=== PATIENT | female | born 1970 | race Caucasian/White ===

== ENCOUNTER 2025-06-14 00:43 | Inpatient (IN) ==
--- NOTE | 2025-06-14 01:12 | Emergency Department Note ---
History of Present Illness General Chief complaint: Vomiting Stated complaint: VOMIT Time Seen by Provider: 06/14/25 00:56 History of Present Illness This 54-year-old female presents to the ER complaining of nausea vomiting diarrhea and abdominal cramping today. Patient is on Ozempic and frequently gets diarrhea but this feels different. No known bad food exposure. Patient is visiting her daughter from [place]. Patient denies chest pain, dyspnea, cough, congestion, flulike illness. Past Med/Surg History Problem List (Updated 06/14/25 @ 04:01 by Alejandra Guadalupe PA-C) Abdominal pain, acute (Acute) Nausea, vomiting, and diarrhea (Acute) Medical History (Updated 06/14/25 @ 04:01 by Alejandra Guadalupe PA-C) Morbid obesity with body mass index (BMI) of 40.0 or higher Social History Smoking Status: Never smoker Preferred Language: Faroese Feels Safe at Home: Yes Review of Systems A total of 10 systems reviewed and were otherwise negative Physical Exam Vital Signs Vital Signs - 24 hr 06/14/25 00:52 06/14/25 01:10 06/14/25 01:13 Temperature 36.0 C L Temperature Source Temporal Artery Scan Pulse Rate 102 H Pulse Rate [Apical] 83 Respiratory Rate 17 16 Respiratory Effort / Characteristics Non-Labored Spontaneous Respiratory Depth Normal Respiratory Pattern Regular Blood Pressure 125/78 Blood Pressure [Right Arm] 123/78 Blood Pressure Mean 93 Blood Pressure Mean [Right Arm] 93 Pulse Oximetry 98 98 95 Oxygen Delivery Method Room Air Room Air Room Air Sepsis Recent Fever Within 48 Hours No Sepsis New/Unexplained Change in Mental Status N/A Sepsis Action Taken by Nursing No Action Required 06/14/25 01:14 06/14/25 03:00 Temperature Temperature Source Pulse Rate 85 Pulse Rate [Apical] 91 H Respiratory Rate 18 Respiratory Effort / Characteristics Respiratory Depth Respiratory Pattern Blood Pressure Blood Pressure [Right Arm] 132/78 Blood Pressure Mean Blood Pressure Mean [Right Arm] 96 Pulse Oximetry 94 Oxygen Delivery Method Room Air Sepsis Recent Fever Within 48 Hours Sepsis New/Unexplained Change in Mental Status Sepsis Action Taken by Nursing VITALS: Vitals are noted on the nurse's note and reviewed by myself. Vital signs stable. GENERAL: Pleasant female, in no acute distress, nondiaphoretic, well-developed well-nourished. SKIN: Capillary reflex less than 2 seconds. HEENT: Normocephalic. PERRLA. EOMI. Nares patent. Mucous membranes moist. Neck is supple without nuchal rigidity. HEART: Regular rate and rhythm LUNGS: Clear to auscultation bilaterally without wheezes, rales or rhonchi. No retractions or accessory muscle use. ABDOMEN: Positive bowel sounds x 4. Normal tympanic percussion. Soft, tender to palpation mid abdomen, without masses or organomegaly. Cannon sign negative. No guarding or rebound tenderness. no CVA tenderness MUSCULOSKELETAL: No gross musculoskeletal defects. NEURO: Patient was alert and oriented to person place and time. No focal neurological deficits. Course Administered Medications Discontinued Medications Dicyclomine HCl (Dicyclomine Hcl 10 Mg/Ml 2 Ml Amp/Vial) 20 mg IM NOW ONE Stop: 06/14/25 01:07 Last Admin: 06/14/25 01:16 Dose: 20 mg Documented By: AN Sodium Chloride (Nss) 1,000 mls @ 999 mls/hr IV .Q1H1M STA Stop: 06/14/25 02:06 Last Admin: 06/14/25 01:16 Dose: 999 mls/hr Documented By: AN Famotidine (Pepcid 20mg Iv Push) 20 mg in 5 mls @ 2.5 mls/min IV NOW STA Stop: 06/14/25 01:07 Last Admin: 06/14/25 01:16 Dose: 2.5 mls/min Documented By: AN Ioversol (Optiray 320 100ml) 93 ml IV ONCE ONE Stop: 06/14/25 02:09 Last Admin: 06/14/25 02:08 Dose: 93 ml Documented By: GES Ondansetron HCl (Ondansetron Inj 2 Mg/Ml 2 Ml Vial) 4 mg IV NOW STA Stop: 06/14/25 01:07 Last Admin: 06/14/25 01:16 Dose: 4 mg Documented By: AN Medical Decision Making Medical Records Attestation: I reviewed the patient's medical records. Home Medications Current Medication List: was personally reviewed by me Laboratory Data Attestation: I reviewed the patient's lab results. 06/14/25 01:10 06/14/25 01:10 Lab Results 06/14/25 06/14/25 Range/Units 01:10 02:20 WBC 12.25 H (4.8-10.8) K/ul RBC 4.54 (4.20-5.40) M/uL Hgb 13.7 (12.0-16.0) g/dl Hct 39.4 (37.0-47.0) % MCV 86.8 (80.0-100.0) fL MCH 30.2 (25.0-34.0) pg MCHC 34.8 (32.0-36.0) g/dL RDW Std Deviation 40.4 (36.4-46.3) fL RDW Coeff of Susana 12.9 (11.5-14.5) % Plt Count 283 (130-400) K/uL MPV 9.8 (9.4-12.4) fL Immature Gran % (Auto) 0.3 % Neut % (Auto) 82.7 % Lymph % (Auto) 9.8 % [place] % (Auto) 5.9 % Eos % (Auto) 1.1 % Baso % (Auto) 0.2 % Neut # (Auto) 10.13 H (1.40-6.50) K/uL Lymph # (Auto) 1.20 (1.20-3.40) K/uL [place] # (Auto) 0.72 H (0.11-0.59) K/uL Eos # (Auto) 0.13 (0.00-0.50) K/uL Baso # (Auto) 0.03 (0.00-0.20) K/uL Immature Gran # (Auto) 0.04 (0.01-0.20) K/uL Sodium 140 (136-145) mmol/L Potassium 3.5 (3.5-5.1) mmol/L Chloride 105 (98-107) mmol/L Carbon Dioxide 25 (21-32) mmol/L Anion Gap 10 (3-11) BUN 15 (6-23) mg/dl Creatinine 1.00 (0.6-1.2) mg/dl Est Cr Clr Drug Dosing 84.7 ml/min eGFR 66.95 BUN/Creatinine Ratio 15.0 (10-20) Glucose 134 H (70-99(Fasting)) mg/dl Calcium 10.1 (8.6-10.3) mg/dl Total Bilirubin 0.8 (0.2-1.0) mg/dl AST 19 (13-39) U/L ALT 19 (7-52) U/L Alkaline Phosphatase 83 (34-104) U/L Total Protein 8.0 (6.0-8.3) gm/dl Albumin 4.4 (3.4-5.0) gm/dl Globulin 3.6 (2.5-4.0) gm/dl Albumin/Globulin Ratio 1.2 (0.9-2) Lipase 42 (11-82) U/L Urine Color Yellow Urine Appearance Clear (Clear) Urine pH 5.0 (4.5-7.5) Ur Specific [place] 1.043 H (1.000-1.030) Urine Protein Negative (Negative) Urine Glucose (UA) Negative (Negative) Urine Ketones 1+ H (Negative) Urine Blood Negative (Negative) Urine Nitrite Negative (Negative) Urine Bilirubin Negative (Negative) Urine Urobilinogen Negative (Negative) Ur Leukocyte Esterase Negative (Negative) Urine Comment Imaging Data Attestation: I personally reviewed and interpreted this imaging study as follows: Radiologist's Impression: Abdomen/Pelvis CT 06/14/25 01:06 EXAM: CT abd pelvis IV con only CLINICAL HISTORY: mid abd pain v/d TECHNIQUE: CT of the abdomen and pelvis was performed with contrast (93 cc Opti 320), using the following protocol: Axial images were obtained and reconstructed into coronal and sagittal images. One of the following dose reduction techniques was utilized for this exam: automated exposure control, adjustment of the mA and/or kV according to patient size, and use of iterative reconstruction. COMPARISON: No prior studies are available for comparison. FINDINGS: Abdomen: Liver: The liver is normal in size, shape, and density. No focal lesions, cysts, or masses are identified. The hepatic vasculature and biliary ducts are unremarkable. Gallbladder and Biliary System: The gallbladder is normal in size and shape. No wall thickening, pericholecystic fluid, or gallstones are identified. The common bile duct is normal in caliber without dilation. Pancreas: The head, body, and tail of the pancreas are visualized and appear normal in size and density. No pancreatic masses or calcifications are noted. The pancreatic duct is not dilated. Spleen: The spleen is normal in size, shape, and density. No splenic lesions or masses are identified. Appendix: No evidence of appendiceal abscess or perforation is seen. Kidneys and Adrenal Glands: Both kidneys are normal in size, shape, and position. Cortical thickness is within normal limits. No renal calculi or hydronephrosis are seen. The adrenal glands are unremarkable with no evidence of masses or hyperplasia. Pelvis: Urinary Bladder: The urinary bladder is normal in contour and wall thickness. No intraluminal lesions are identified. Uterus: Not visualized. Ovaries: Not well visualized, but no gross abnormalities are noted. Vagina: The vagina is normal in contour and wall thickness. Bowel: The cecum and ascending colon are dilated with associated mesenteric vascular swirling and anterior positioning of the cecum, with related mild proximal small bowel dilatation. Prominence of right lower quadrant mesenteric lymph nodes is present. No free ascites or pneumoperitoneum is identified. Bones and Soft Tissues: The pelvic bones and soft tissues are unremarkable. No fractures or abnormal masses are identified. IMPRESSION: CT findings raise the possibility of cecal bascule (anteromedial volvulus); further assessment and clinical correlation are advised. Electronically signed by Abdullahi Mack 06-14-2025 03:29 AM MDM Narrative Prior records/ancillary studies reviewed. Triage Nursing notes reviewed. Additional history obtained from nursing The patient's history was concerning for nausea, vomiting, diarrhea, and abdominal pain. Differential diagnosis: Etiologies such as side effect of Ozempic, gastroenteritis, food borne illness, infections, appendicitis, diverticulitis, inflammatory bowel disease, obstruction, GI bleed, biliary pathology, as well as others were entertained. Physical examination findings: As above. Abdominal examination revealed tender. Vital signs reviewed and revealed stable. ER treatment provided: IV hydration 1 L NSS. Zofran Pepcid and Bentyl were ordered On reassessment the patient felt better. Patient was tolerating p.o. intake. Diagnostics interpretation by me: The labs Independently Interpreted by myself revealed mild leukocytosis, mild hyperglycemia without DKA Negative urine Imaging studies: Imaging was reviewed and read by radiology Consultation: A consultation was placed with the hospitalist. The case was discussed and diagnostics were reviewed. The patient was evaluated in the ER for further treatment. Consultation was placed with surgery and the case was discussed. They did evaluate the patient. They think is less likely a volvulus but would like to have the patient admitted for observation. They recommend medical admission. This appears to be consistent with vomiting and diarrhea most likely viral in etiology with possible volvulus. Repeat abdominal exam is benign. Surgery and medicine were consulted. Patient will be admitted to the medical service for further evaluation and workup for possible volvulus. Surgery will reevaluate the patient later this morning. Patient is agreeable. Patient was admitted to the medical team. By the evaluation outlined above emergent etiologies such as appendicitis, diverticulitis, cardiac sources, mesenteric ischemia, aortic pathology, inflammatory bowel disease, renal colic, PUD, biliary pathology, UTI, as well as others were deemed relatively unlikely. The pt informed about the findings as listed above. All questions were answered and pleased with the treatment. The chart was completed utilizing [employer] Speech voice recognition software. Grammatical errors, random word insertions, pronoun errors, and incomplete sentences are an occassional consequence of this system due to software limitations, ambient noise, and hardware issues. Any formal questions or concerns about the content, text, or information contained within the body of this dictation should be directly addressed to the physician assistant news director for clarification. Impression & Plan Nausea, vomiting, and diarrhea, Abdominal pain, acute Discharge Plan Visit Data Chief Complaint: Vomiting Stated Complaint: VOMIT ED Provider: Baudilio Ayala ED Midlevel Provider: Alejandra Guadalupe Discharge Problem: Nausea, vomiting, and diarrhea, Abdominal pain, acute Patient Disposition: Being Evaluated by Hospitalist Condition: Good Discharge Instructions Krames/Other Patient Handouts: ED Vomiting (Adult) Activity Restrictions/Additional Instructions: Bently tablets 10mg: Take one every six hours as needed for abdominal cramping and bloating. Zofran(odansetron) tablets 4mg: Take one and allow it to dissolve in your mouth every four to six hours as needed for nausea or vomiting. Rest and drink plenty of fluids as tolerated. Slow sips of water or sports drinks are recommended instead of large amounts all at once. Continue current medications. Mystic diet until symptoms resolve. You should avoid full, heavy meals for about 24 hrs from the time your symptoms resolved. Return to the ER for persistent vomiting, fevers, abdominal pain, chest pains, difficulty breathing, black or bloody stools, worsening of your condition, or as needed. Follow up with your primary physician in 2-3 days for a recheck of your current condition. Forms Stand Alone Forms: Important Visit Information Referrals Referrals: [facility],Hospital [Primary Care Provider] -
[2025-06-14] MEDS: SODIUM CHLORIDE 0.9% 1,000 ML IV STA (01:16)
[2025-06-14] MEDS: ONDANSETRON INJ 2 MG/ML 2 ML VIAL IV STA (01:16)
[2025-06-14] MEDS: DICYCLOMINE HCL 10 MG/ML 2 ML AMP/VIAL IM ONE (01:16)
[2025-06-14] MEDS: FAMOTIDINE 20MG IV PUSH 20 MG/5 ML SYR IV STA (01:16)
[2025-06-14 01:28] LABS: Hematocrit (blood only) 39.4 % (37.0-47.0); Hemoglobin 13.7 g/dl (12.0-16.0); Immature Granulocytes # (auto) 0.04 K/uL (0.01-0.20); Immature Granulocytes % (auto) 0.3 %; Mean Corpuscular Hemoglobin 30.2 pg (25.0-34.0); Mean Corpuscular Volume 86.8 fL (80.0-100.0); Platelet Count 283 K/uL (130-400); RDW Standard Deviation 40.4 fL (36.4-46.3); Red Blood Count 4.54 M/uL (4.20-5.40); White Blood Count 12.25 K/ul (4.8-10.8)
[2025-06-14 01:47] LABS: Alanine Aminotransferase 19.0 U/L (7-52); Albumin Globulin Ratio 1.2 (0.9-2); Albumin Level 4.4 gm/dl (3.4-5.0); Alkaline Phosphatase 83.0 U/L (34-104); Anion Gap 10.0 (3-11); Bilirubin,Total 0.8 mg/dl (0.2-1.0); Blood Urea Nitrogen 15.0 mg/dl (6-23); Calcium 10.1 mg/dl (8.6-10.3); Carbon Dioxide 25.0 mmol/L (21-32); Chloride 105.0 mmol/L (98-107); Creatinine Clr Calc Pharmacy 84.7 ml/min; Globulin 3.6 gm/dl (2.5-4.0); Glucose 134.0 mg/dl (70-99(Fasting)); Lipase 42.0 U/L (11-82); Potassium 3.5 mmol/L (3.5-5.1); Sodium 140.0 mmol/L (136-145); Total Protein 8.0 gm/dl (6.0-8.3)
[2025-06-14] MEDS: OPTIRAY 320 100ml IV ONE (02:08)
[2025-06-14 02:35] LABS: Appearance Urine Clear (Clear); Glucose Urine UA Negative (Negative)
--- NOTE | 2025-06-14 03:30 | CT Scan Report ---
EXAM: CT abd pelvis IV con only CLINICAL HISTORY: mid abd pain v/d TECHNIQUE: CT of the abdomen and pelvis was performed with contrast (93 cc Opti 320), using the following protocol: Axial images were obtained and reconstructed into coronal and sagittal images. One of the following dose reduction techniques was utilized for this exam: automated exposure control, adjustment of the mA and/or kV according to patient size, and use of iterative reconstruction. COMPARISON: No prior studies are available for comparison. FINDINGS: Abdomen: Liver: The liver is normal in size, shape, and density. No focal lesions, cysts, or masses are identified. The hepatic vasculature and biliary ducts are unremarkable. Gallbladder and Biliary System: The gallbladder is normal in size and shape. No wall thickening, pericholecystic fluid, or gallstones are identified. The common bile duct is normal in caliber without dilation. Pancreas: The head, body, and tail of the pancreas are visualized and appear normal in size and density. No pancreatic masses or calcifications are noted. The pancreatic duct is not dilated. Spleen: The spleen is normal in size, shape, and density. No splenic lesions or masses are identified. Appendix: No evidence of appendiceal abscess or perforation is seen. Kidneys and Adrenal Glands: Both kidneys are normal in size, shape, and position. Cortical thickness is within normal limits. No renal calculi or hydronephrosis are seen. The adrenal glands are unremarkable with no evidence of masses or hyperplasia. Pelvis: Urinary Bladder: The urinary bladder is normal in contour and wall thickness. No intraluminal lesions are identified. Uterus: Not visualized. Ovaries: Not well visualized, but no gross abnormalities are noted. Vagina: The vagina is normal in contour and wall thickness. Bowel: The cecum and ascending colon are dilated with associated mesenteric vascular swirling and anterior positioning of the cecum, with related mild proximal small bowel dilatation. Prominence of right lower quadrant mesenteric lymph nodes is present. No free ascites or pneumoperitoneum is identified. Bones and Soft Tissues: The pelvic bones and soft tissues are unremarkable. No fractures or abnormal masses are identified. IMPRESSION: CT findings raise the possibility of cecal bascule (anteromedial volvulus); further assessment and clinical correlation are advised. Electronically signed by Abdullahi Mack 06-14-2025 03:29 AM
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
--- NOTE | 2025-06-14 06:09 | History & Physical Report ---
Date of Service June 14, 2025 Assessment & Plan (1) Nausea, vomiting, and diarrhea: Plan: 54-year-old female with past medical history significant for depression, anxiety, sleep apnea who is from [facility] visiting [place] to take care of her daughters and her kids presents with nausea vomiting and diarrhea. Patient had several episodes of nausea /vomiting and diarrhea at home. She is on Ozempic and she gets diarrhea but this seemed different and came to the hospital as she is worried about dehydration. CAT scan showing questionable cecal volvulus. Currently patient is asymptomatic except for some abdominal discomfort. Evaluated by surgery and recommended observation for now. Denies any chest pain or shortness of breath. No headache. No cough. No fevers. But when she was vomiting was feeling hot and cold. Patient states one bowel movement was presley colored. Micturating okay. Currently resting comfortably. 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 Depression and anxiety Continue home medications Sleep apnea Uses dental appliance Obesity and prediabetes on Ozempic will follow hba1c levels DVT prophylaxis SCDs for now Disposition Medical floor Full code. History of Present Illness Chief Complaint: Nausea vomiting and diarrhea Primary Care Provider: [facility] 54-year-old female with past medical history significant for depression, anxiety, sleep apnea who is from [facility] visiting [place] to take care of her daughters and her kids presents with nausea vomiting and diarrhea. Patient had several episodes of nausea /vomiting and diarrhea at home. She is on Ozempic and she gets diarrhea but this seemed different and came to the hospital as she is worried about dehydration. CAT scan showing questionable cecal volvulus. Currently patient is asymptomatic except for some abdominal discomfort. Evaluated by surgery and recommended observation for now. Denies any chest pain or shortness of breath. No headache. No cough. No fevers. But when she was vomiting was feeling hot and cold. Patient states one bowel movement was presley colored. Micturating okay. Currently resting comfortably. Past medical history. As mentioned above. Past surgical history. Hysterectomy Social history. No smoking. No alcohol spine no drug use. Family history. Father has Alzheimer's disease. Cancer in the family Home Medications Medication Instructions Recorded Confirmed Type azelastine 137 mcg (0.1 %) nasal 1 spray intranasal BID PRN 06/14/25 06/14/25 History spray Allergic Symptoms bupropion HCl 150 mg tablet,12 hr 150 mg PO DAILY 06/14/25 06/14/25 History sustained-release duloxetine 60 mg capsule,delayed 60 mg PO DAILY 06/14/25 06/14/25 History release fluticasone propionate 50 1 spray intranasal DAILY 06/14/25 06/14/25 History mcg/actuation nasal spray,suspension lidocaine 5 % topical patch 1 patch topical DAILY 06/14/25 06/14/25 History loratadine 10 mg tablet 10 mg PO DAILY 06/14/25 06/14/25 History lorazepam 0.5 mg tablet (Ativan) 0.5 mg PO BID PRN Anxiety 06/14/25 06/14/25 History semaglutide 0.25 mg or 0.5 mg (2 0.25 mg subcut WK 06/14/25 06/14/25 History mg/3 mL) subcutaneous pen injector (Ozempic) Past Med/Surg History Problem List (Updated 06/14/25 @ 04:01 by Alejandra Guadalupe PA-C) Abdominal pain, acute (Acute) Nausea, vomiting, and diarrhea (Acute) Medical History (Updated 06/14/25 @ 04:01 by Alejandra Guadalupe PA-C) Morbid obesity with body mass index (BMI) of 40.0 or higher Social History Smoking Status: Never smoker Preferred Language: Albanian Feels Safe at Home: Yes Review of Systems Review of Systems: All systems reviewed & are unremarkable except as noted in HPI & below Physical Exam Physical Exam: General- Not in distress Head- atraumatic Eyes- PERRL. ENT- oropharynx clear Neck- supple, no JVD Lungs- clear to auscultation no wheezing or crackles Heart- regular rhythm; no murmur, no gallop. Abdomen- normal bowel sounds, soft, mild discomfort in periumbilical region , no distension Extremities- no pretibial edema, no erythema seen Neuro- alert, oriented PERRL, no facial palsy; no dysarthria; moves extremities Results & Data Results & Data Vital Signs (Past 12 Hours) Vital Signs Temp Pulse Pulse Resp BP BP Pulse Ox 06/14/25 05:04 77 06/14/25 05:00 73 18 115/77 94 06/14/25 03:00 91 H 18 132/78 94 06/14/25 01:14 85 06/14/25 01:13 83 16 123/78 95 06/14/25 01:10 98 06/14/25 00:52 36.0 C L 102 H 17 125/78 98 O2 Del Method 06/14/25 05:04 06/14/25 05:00 Room Air 06/14/25 03:00 Room Air 06/14/25 01:14 06/14/25 01:13 Room Air 06/14/25 01:10 Room Air 06/14/25 00:52 Room Air Diagnostic Findings Laboratory Results WBC 12.25 K/ul (4.8-10.8) H 06/14/25 01:10 RBC 4.54 M/uL (4.20-5.40) 06/14/25 01:10 Hgb 13.7 g/dl (12.0-16.0) 06/14/25 01:10 Hct 39.4 % (37.0-47.0) 06/14/25 01:10 MCV 86.8 fL (80.0-100.0) 06/14/25 01:10 MCH 30.2 pg (25.0-34.0) 06/14/25 01:10 MCHC 34.8 g/dL (32.0-36.0) 06/14/25 01:10 RDW Std Deviation 40.4 fL (36.4-46.3) 06/14/25 01:10 RDW Coeff of Susana 12.9 % (11.5-14.5) 06/14/25 01:10 Plt Count 283 K/uL (130-400) 06/14/25 01:10 MPV 9.8 fL (9.4-12.4) 06/14/25 01:10 Immature Gran % (Auto) 0.3 % 06/14/25 01:10 Neut % (Auto) 82.7 % 06/14/25 01:10 Lymph % (Auto) 9.8 % 06/14/25 01:10 Cobb % (Auto) 5.9 % 06/14/25 01:10 Eos % (Auto) 1.1 % 06/14/25 01:10 Baso % (Auto) 0.2 % 06/14/25 01:10 Neut # (Auto) 10.13 K/uL (1.40-6.50) H 06/14/25 01:10 Lymph # (Auto) 1.20 K/uL (1.20-3.40) 06/14/25 01:10 Cobb # (Auto) 0.72 K/uL (0.11-0.59) H 06/14/25 01:10 Eos # (Auto) 0.13 K/uL (0.00-0.50) 06/14/25 01:10 Baso # (Auto) 0.03 K/uL (0.00-0.20) 06/14/25 01:10 Immature Gran # (Auto) 0.04 K/uL (0.01-0.20) 06/14/25 01:10 Sodium 140 mmol/L (136-145) 06/14/25 01:10 Potassium 3.5 mmol/L (3.5-5.1) 06/14/25 01:10 Chloride 105 mmol/L (98-107) 06/14/25 01:10 Carbon Dioxide 25 mmol/L (21-32) 06/14/25 01:10 Anion Gap 10 (3-11) 06/14/25 01:10 BUN 15 mg/dl (6-23) 06/14/25 01:10 Creatinine 1.00 mg/dl (0.6-1.2) 06/14/25 01:10 Est Cr Clr Drug Dosing 84.7 ml/min 06/14/25 01:10 eGFR 66.95 06/14/25 01:10 BUN/Creatinine Ratio 15.0 (10-20) 06/14/25 01:10 Glucose 134 mg/dl (70-99(Fasting)) H 06/14/25 01:10 Calcium 10.1 mg/dl (8.6-10.3) 06/14/25 01:10 Total Bilirubin 0.8 mg/dl (0.2-1.0) 06/14/25 01:10 AST 19 U/L (13-39) 06/14/25 01:10 ALT 19 U/L (7-52) 06/14/25 01:10 Alkaline Phosphatase 83 U/L (34-104) 06/14/25 01:10 Total Protein 8.0 gm/dl (6.0-8.3) 06/14/25 01:10 Albumin 4.4 gm/dl (3.4-5.0) 06/14/25 01:10 Globulin 3.6 gm/dl (2.5-4.0) 06/14/25 01:10 Albumin/Globulin Ratio 1.2 (0.9-2) 06/14/25 01:10 Lipase 42 U/L (11-82) 06/14/25 01:10 Urine Color Yellow 06/14/25 02:20 Urine Appearance Clear (Clear) 06/14/25 02:20 Urine pH 5.0 (4.5-7.5) 06/14/25 02:20 Ur Specific [place] 1.043 (1.000-1.030) H 06/14/25 02:20 Urine Protein Negative (Negative) 06/14/25 02:20 Urine Glucose (UA) Negative (Negative) 06/14/25 02:20 Urine Ketones 1+ (Negative) H 06/14/25 02:20 Urine Blood Negative (Negative) 06/14/25 02:20 Urine Nitrite Negative (Negative) 06/14/25 02:20 Urine Bilirubin Negative (Negative) 06/14/25 02:20 Urine Urobilinogen Negative (Negative) 06/14/25 02:20 Ur Leukocyte Esterase Negative (Negative) 06/14/25 02:20 Urine Comment 06/14/25 02:20 Impressions Abdomen/Pelvis CT 06/14/25 01:06 EXAM: CT abd pelvis IV con only CLINICAL HISTORY: mid abd pain v/d TECHNIQUE: CT of the abdomen and pelvis was performed with contrast (93 cc Opti 320), using the following protocol: Axial images were obtained and reconstructed into coronal and sagittal images. One of the following dose reduction techniques was utilized for this exam: automated exposure control, adjustment of the mA and/or kV according to patient size, and use of iterative reconstruction. COMPARISON: No prior studies are available for comparison. FINDINGS: Abdomen: Liver: The liver is normal in size, shape, and density. No focal lesions, cysts, or masses are identified. The hepatic vasculature and biliary ducts are unremarkable. Gallbladder and Biliary System: The gallbladder is normal in size and shape. No wall thickening, pericholecystic fluid, or gallstones are identified. The common bile duct is normal in caliber without dilation. Pancreas: The head, body, and tail of the pancreas are visualized and appear normal in size and density. No pancreatic masses or calcifications are noted. The pancreatic duct is not dilated. Spleen: The spleen is normal in size, shape, and density. No splenic lesions or masses are identified. Appendix: No evidence of appendiceal abscess or perforation is seen. Kidneys and Adrenal Glands: Both kidneys are normal in size, shape, and position. Cortical thickness is within normal limits. No renal calculi or hydronephrosis are seen. The adrenal glands are unremarkable with no evidence of masses or hyperplasia. Pelvis: Urinary Bladder: The urinary bladder is normal in contour and wall thickness. No intraluminal lesions are identified. Uterus: Not visualized. Ovaries: Not well visualized, but no gross abnormalities are noted. Vagina: The vagina is normal in contour and wall thickness. Bowel: The cecum and ascending colon are dilated with associated mesenteric vascular swirling and anterior positioning of the cecum, with related mild proximal small bowel dilatation. Prominence of right lower quadrant mesenteric lymph nodes is present. No free ascites or pneumoperitoneum is identified. Bones and Soft Tissues: The pelvic bones and soft tissues are unremarkable. No fractures or abnormal masses are identified. IMPRESSION: CT findings raise the possibility of cecal bascule (anteromedial volvulus); further assessment and clinical correlation are advised. Electronically signed by Abdullahi Mack 06-14-2025 03:29 AM Code Status & VTE Plan VTE Prophylaxis Plan VTE Prophylaxis will be ordered: Yes
[2025-06-14] MEDS: ACETAMINOPHEN 1,000 MG/100 ML VIAL IV STA (08:57)
[2025-06-14] MEDS ORDERED: ONDANSETRON INJ 2 MG/ML 2 ML VIAL ONE (09:25)
[2025-06-14] MEDS ORDERED: LIDOCAINE 2% 2 ML VIAL/AMP(20MG/ML) INFIL ONE ×2 (09:25→09:26)
[2025-06-14] MEDS ORDERED: MIDAZOLAM HCL 1 MG/ML 2ML VIAL ONE (09:25)
[2025-06-14] MEDS ORDERED: DEXAMETHASONE SOD INJ 4 MG/ML VIAL ONE (09:25)
[2025-06-14] MEDS ORDERED: PROPOFOL IV EMULSION 10 MG/ML 20 ML VIAL IV ONE ×2 (09:25→12:44)
[2025-06-14] MEDS ORDERED: ROCURONIUM BROMIDE 10 MG/ML 5 ML VIAL IV ONE ×2 (09:26→11:20)
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
[2025-06-14] MEDS ORDERED: ATROPINE SULFATE 0.1 MG/ML 10ML SYR IV PRN (09:37)
[2025-06-14] MEDS ORDERED: PROMETHAZINE HCL 6.25 MG in SODIUM CHLORIDE 0.9% 50 ML IV PRN (09:37)
[2025-06-14] MEDS ORDERED: DROPERIDOL 5 MG/2 ML VIAL IV PRN (09:37)
[2025-06-14] MEDS: LACTATED RINGER'S 1,000 ML IV SCH ×2 (09:38→15:09)
--- NOTE | 2025-06-14 10:03 | History & Physical Bridge Note ---
Date of Service June 14, 2025 History & Physical Bridge Note I have examined the patient, reviewed the History & Physical and in the interval since the performance of the History & Physical I have noted the following changes of clinical significance: no changes noted. Patient with symptomatic cecal bascule. Plan will be for laparoscopic right colectomy, possible open colectomy, possible ostomy, risks of procedure were discussed with the patient and they include bleeding, infection, injury to surrounding structures, need for further procedures, anastomotic leak, wound issues to include wound infection, dehiscence, and hernia, and cardiopulmonary events that can occur. Alternatives include no surgery, which the patient declines. Patient wishes to proceed with surgery. All questions were answered.
[2025-06-14] MEDS: NALOXEGOL OXALATE 25 MG TAB PO SCH (10:45)
[2025-06-14] MEDS ORDERED: PHENYLEPHRINE 100MCG/ML 5ML SYR ONE (11:22)
[2025-06-14] MEDS ORDERED: SUGAMMADEX SODIUM 200 MG/2 ML VIAL IV ONE (11:41)
[2025-06-14] MEDS: BUPIVACAINE 0.5 % 5 MG/1 ML MPF 30ML VIAL ONE (12:26)
[2025-06-14] MEDS: BUPIVACAINE LIPOSOME 1.3% 133 MG/10 ML VIAL ONE (12:26)
--- NOTE | 2025-06-14 12:38 | Operative Report ---
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, multiple small bowel nodules seen throughout the small bowel intraluminally, unclear etiology I identified the patient and participated in the time-out.: Yes Procedure Operation Date: 06/14/25 12:10 Actual Procedures p Laparoscopic Right Hemicolectomy(Not Applicable) - Anthony Medina MD Surgeon Anthony Medina MD Ticket Attendant Amairani Orta PA-C Estimated Blood Loss 15 Findings Consistent with Post-Op Diagnosis 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 Workup revealed cecal bascule with twisting of mesentery with anterior medial volvulus. She presents now for laparoscopic right colectomy with primary anastomosis. Risks of procedure were discussed with the patient include bleeding, infection, injury to surround structures, need for further procedures, anastomotic leak, wound issues to include wound infection, dehiscence, and hernia, and cardiopulmonary events that can occur. Alternatives include no surgery, show patient declines. Patient wishes to proceed with surgery. All questions were answered. Description of procedure: Informed consent was verified and site of surgery was verified and the patient was brought back to operating room. General anesthesia was administered. She was in the supine position with the arms tucked. The patient's abdomen was prepped and draped in the usual sterile fashion. A surgical timeout was performed and there were no issues. Next, a left upper quadrant incision was made and a Veress needle was inserted and the abdomen was insufflated to about 15 mmHg. Next, a 30 degree laparoscope was inserted with a 5 mm trocar under direct vision using the Optiview technique. The abdomen was inspected, there was no evidence of any injuries to any structures from entry into the abdominal cavity. 2 additional 5 mm ports were placed under direct vision, 1 was in the left lower quadrant and 1 was suprapubically. At the level of the cecum, there was indeed twisting with some twisting of the small bowel mesentery proximal to this. The small bowel at this level did appear to be hyperemic. The right colon was mobilized along the white line of Toldt and was mobilized distal to the hepatic flexure with care taken to avoid injury to any structures. A midline HandPort was used to bring the bowel out into the abdomen. Next, the lines of transection was identified approximately 10 cm proximal to the ileocecal valve and just distal to the hepatic flexure and the colon and small bowel were transected using the 80 mm SHIRA stapler. Next, the mesentery was divided using a commendation of the LigaSure device as well as suture ligation of the mesentery. Because this was not for cancer, high ligation of the mesentery was not performed. Next, a [id number] functional end-to-end anastomosis was created by opening the antimesenteric ends of the small bowel and the transverse colon and using the 80 mm SHIRA stapler to create the anastomosis. After creating the anastomosis, the small bowel was examined before closing the common enterotomy and was seen to have multiple nodules and it, either pseudopolyps versus inflammatory polyps versus nodules. The small bowel was palpated proximal to the staple line and the nodules were identified and seen quite proximal to it as well. Given that these did appear to be chronic and diffuse, decision was made not to resect further proximally. The common enterotomy was closed using the contour stapling device. 3-0 Vicryl suture was used to reinforce the staple line as well as to take tension off the staple line. Because the mesenteric defect was large, it was not closed. The colon and anastomosis was examined laparoscopically and was seen to be without twisting of the mesentery. A 19 Upper Sor[place] Emir drain was placed via the suprapubic port and was brought below the hepatic flexure and secured. The fascia of the HandPort was closed with 0 looped PDS and Exparel was injected along the fascia and the port site incisions. The skin of the HandPort and the other ports were closed using isaiah. Sterile dressing was applied the patient was weaned off anesthesia and transferred to recovery in stable condition. She tolerated the procedure well. I attest to the content of the Intraoperative Record and any orders documented therein. Any exceptions are noted below.
[2025-06-14] MEDS: HYDROmorphone INJ 2 MG/ML SYR/VIAL IV PRN (12:48)
[2025-06-14] MEDS: KETOROLAC 30 MG/ML VIAL ONE (13:28)
[2025-06-14] MEDS: KETOROLAC TROMETHAMINE 15 MG/ML VIAL IV ONE (13:28)
[2025-06-14] MEDS ORDERED: AZELASTINE HCL 0.1% NASAL 200 SPRAYS/27,400 MCG BTL PRN (14:33)
[2025-06-14] MEDS ORDERED: ONDANSETRON INJ 2 MG/ML 2 ML VIAL IV PRN (14:33)
[2025-06-14] MEDS ORDERED: LORazepam 0.5 MG TAB PO PRN (14:33)
[2025-06-14] MEDS ORDERED: MoRPHine SULFATE 4 MG/ML 1 ML CARP\\VIAL IV PRN (14:38)
--- NOTE | 2025-06-14 14:55 | Anesthesiology Progress Note ---
Date of Service June 14, 2025 Anesthesia Post Procedure Vital Signs Vital Signs: Temp Pulse Pulse Pulse Resp BP BP 06/14/25 14:42 36.3 C L 78 16 117/79 06/14/25 14:30 36.3 C L 78 16 117/79 06/14/25 14:15 68 12 116/68 06/14/25 14:05 70 10 L 127/69 06/14/25 13:55 72 12 119/75 06/14/25 13:45 79 14 119/78 06/14/25 13:35 36.3 C L 87 12 107/55 L 06/14/25 13:25 91 H 12 82/51 L 06/14/25 13:15 84 10 L 93/54 L 06/14/25 13:05 85 15 101/48 L 06/14/25 12:55 83 15 125/63 06/14/25 12:48 36.1 C L 81 10 L 132/62 06/14/25 09:58 85 17 121/71 06/14/25 09:31 36.6 C 88 18 121/71 06/14/25 09:04 85 17 121/71 06/14/25 06:30 79 16 110/62 06/14/25 05:04 77 06/14/25 05:00 73 18 115/77 06/14/25 03:00 91 H 18 132/78 06/14/25 01:14 85 06/14/25 01:13 83 16 123/78 06/14/25 01:10 06/14/25 00:52 36.0 C L 102 H 17 125/78 Pulse Ox O2 Del Method O2 Flow Rate 06/14/25 14:42 97 Room Air 06/14/25 14:30 97 Room Air 06/14/25 14:15 92 Room Air 06/14/25 14:05 94 Room Air 06/14/25 13:55 97 Room Air 06/14/25 13:45 97 Room Air 06/14/25 13:35 96 Room Air 06/14/25 13:25 98 Oxymask 2 06/14/25 13:15 98 Oxymask 5 06/14/25 13:05 98 Oxymask 10 06/14/25 12:55 92 Oxymask 10 06/14/25 12:48 95 Oxymask 10 06/14/25 09:58 97 Room Air 06/14/25 09:31 98 Room Air 06/14/25 09:04 97 Room Air 06/14/25 06:30 92 Room Air 06/14/25 05:04 06/14/25 05:00 94 Room Air 06/14/25 03:00 94 Room Air 06/14/25 01:14 06/14/25 01:13 95 Room Air 06/14/25 01:10 98 Room Air 06/14/25 00:52 98 Room Air Pain Intensity Abdomen: Pain Intensity: 4 Transfer of Care Handoff Completed per policy Notes Mental Status: alert / awake / arousable and participated in evaluation Nausea / Vomiting: adequately controlled Pain: adequately controlled Airway Patency, RR, SpO2: stable & adequate BP & HR: stable & adequate Hydration State: stable & adequate Anesthetic Complications: no major complications apparent and Pt Satisfied with anesthetic care
[2025-06-14] MEDS: MoRPHine SULFATE 4 MG/ML 1 ML CARP\\VIAL IV PRN (15:06)
[2025-06-14] MEDS: PIPERACILLIN/TAZOBACTAM 4.5 GM/100 ML BAG IV ONE (15:12)
[2025-06-14] MEDS: LORATADINE 10 MG TAB PO SCH (15:39)
[2025-06-14] MEDS: FLUTICASONE PROPIONATE NA SPR 16 GM BTL SCH (15:39)
[2025-06-14] MEDS: LIDOCAINE 5% 1 PATCH TD SCH (15:40)
--- NOTE | 2025-06-14 16:53 | Communication Note ---
Date of Service: June 14, 2025 Examined at bedside postoperatively reports pain is well controlled at this time with no acute concerns daughter at bedside #Cecal volvulus s/p hemicolectomy Noted in op report to have multiple small bowel nodules seen throughout the small bowel intraluminally, unclear etiology Pathology pending continue npo status continue IVF labs in am to assess for post op anemia
[2025-06-14] MEDS: ACETAMINOPHEN 1,000 MG/100 ML VIAL IV SCH (17:11)
[2025-06-14] MEDS: REMOVE LIDODERM PATCH SCH (20:52)
[2025-06-15 07:57] LABS: Hematocrit (blood only) 35.9 % (37.0-47.0); Hemoglobin 11.9 g/dl (12.0-16.0); Immature Granulocytes # (auto) 0.03 K/uL (0.01-0.20); Immature Granulocytes % (auto) 0.3 %; Mean Corpuscular Hemoglobin 28.9 pg (25.0-34.0); Mean Corpuscular Volume 87.1 fL (80.0-100.0); Platelet Count 228 K/uL (130-400); RDW Standard Deviation 41.1 fL (36.4-46.3); Red Blood Count 4.12 M/uL (4.20-5.40); White Blood Count 10.85 K/ul (4.8-10.8)
[2025-06-15 08:17] LABS: Anion Gap 7.0 (3-11); Blood Urea Nitrogen 10.0 mg/dl (6-23); Calcium 9.2 mg/dl (8.6-10.3); Carbon Dioxide 25.0 mmol/L (21-32); Chloride 106.0 mmol/L (98-107); Creatinine Clr Calc Pharmacy 116.0 ml/min; Glucose 116.0 mg/dl (70-99(Fasting)); Magnesium 2.0 mg/dl (1.7-2.4); Potassium 3.6 mmol/L (3.5-5.1); Sodium 138.0 mmol/L (136-145)
[2025-06-15 08:55] LABS: Hemoglobin A1C 5.3 % (4.5-5.6)
[2025-06-15] MEDS: ASCORBIC ACID 500 MG TAB PO SCH (09:15)
[2025-06-15] MEDS: DOCUSATE SODIUM 100 MG CAP PO SCH (09:19)
--- NOTE | 2025-06-15 10:47 | Surgery Progress Note ---
Date of Service June 15, 2025 Assessment & Plan (1) Cecal bascule: Plan: Postop day 1 from laparoscopic right colectomy with primary anastomosis. Doing well without any acute issues. Plan will be for full liquid diet, await return of bowel function, continue ambulation, DC Novak, Hep-Lock IV fluids. Continue antibiotics. Admission and Anticipated Discharge Date Admission Date: June 14, 2025 Subjective Patient is postop day 1 from laparoscopic right colectomy with primary anastomosis for cecal bascule with mesenteric volvulus. She is doing well without any acute issues. She has been ambulating. She denies passing flatus. She is tolerating sips. Physical Exam Constitutional: WD/WN, vitals as above Respiratory: Normal effort Gastrointestinal (Abdomen): Soft, nondistended, EDWARD drain with serosanguineous fluid Results & Data Vital Signs (Past 12 Hours) Vital Signs Temp Pulse Resp BP Pulse Ox O2 Del Method 06/15/25 08:22 36.7 C 94 H 14 118/75 98 Room Air 06/15/25 03:35 36.4 C L 89 16 103/69 94 Room Air 06/14/25 23:34 36.3 C L 97 H 18 115/70 93 Room Air PG Care Time/CCT Total # of Minutes Spent Total Time Spent with Patient: Total time spent is greater than 50% in coordination of care (as documented) at patient's floor/unit and/or counseling patient: Coding Level of Care Code 44763 Post Operative Follow-Up Diagnoses Cecal bascule K56.2
--- NOTE | 2025-06-15 14:01 | Hospitalist Progress Note ---
Date of Service June 15, 2025 Assessment & Plan (1) Nausea, vomiting, and diarrhea: Plan: Ms Ratliff is a 54-year-old female with past medical history significant for depression, anxiety, sleep apnea who is from [facility] visiting [place] to take care of her daughters and her kids admitted for cecal volvulus and now s/p right hemicolectomy. Patient doing well post operatively thus far. No flatus to date. #Cecal volvulus s/p hemicolectomy Noted in op report to have multiple small bowel nodules seen throughout the small bowel intraluminally, unclear etiology Reviewed surgery notes, transiton to [facility] continue IVF continue abx #post operative blood loss anemia labs in am to assess for post op anemia will transfuse <7 #Depression and anxiety Continue home medications #Sleep apnea Uses dental appliance #Obesity and prediabetes on Ozempic a1c 5.3% DVT prophylaxis SCDs for now, will discuss dvt ppx with surgeon Disposition Medical floor Full code. Admission and Anticipated Discharge Date Admission Date: June 14, 2025 Subjective NAEO reports doing well today with some minor am discomfort but otherwise well controlled denies nausea or vomiting, no flatus as of yet ambulating with some assistance Physical Exam Constitutional: WD/WN, vitals as above Respiratory: normal respiratory effort, lungs clear to auscultation Cardiovascular: RRR, no murmur, no edema Gastrointestinal (Abdomen): abdominal binder in place Results & Data Results & Data Vital Signs (Past 12 Hours) Vital Signs Temp Pulse Resp BP Pulse Ox O2 Del Method 06/15/25 08:22 36.7 C 94 H 14 118/75 98 Room Air 06/15/25 03:35 36.4 C L 89 16 103/69 94 Room Air Laboratory Results Short CBC 06/15/25 Range/Units 07:22 WBC 10.85 H (4.8-10.8) K/ul Hgb 11.9 L (12.0-16.0) g/dl Hct 35.9 L (37.0-47.0) % Plt Count 228 (130-400) K/uL BMP 06/15/25 07:22 Sodium 138 Potassium 3.6 Chloride 106 Carbon Dioxide 25 BUN 10 Creatinine 0.73 Glucose 116 H Calcium 9.2 Medications Administered Home Medications Medication Instructions Recorded Confirmed Last Taken azelastine 137 mcg (0.1 %) nasal 1 spray intranasal BID PRN 06/14/25 06/14/25 05/31/25 spray Allergic Symptoms bupropion HCl 150 mg tablet,12 hr 150 mg PO DAILY 06/14/25 06/14/25 06/13/25 09:00 sustained-release (Wellbutrin SR) cyclobenzaprine 5 mg tablet 5 mg PO HS PRN Spasms 06/14/25 06/14/25 06/13/25 21:00 duloxetine 60 mg capsule,delayed 60 mg PO DAILY 06/14/25 06/14/25 06/13/25 09:00 release fluticasone propionate 50 1 spray intranasal DAILY 06/14/25 06/14/25 06/07/25 mcg/actuation nasal spray,suspension lidocaine 5 % topical patch 1 patch topical DAILY 06/14/25 06/14/25 06/13/25 loratadine 10 mg tablet 10 mg PO DAILY 06/14/25 06/14/25 06/13/25 21:00 lorazepam 0.5 mg tablet (Ativan) 0.5 mg PO BID PRN Anxiety 06/14/25 06/14/25 06/13/25 21:00 semaglutide 0.25 mg or 0.5 mg (2 0.25 mg subcut WK 06/14/25 06/14/25 06/07/25 mg/3 mL) subcutaneous pen injector (Ozempic) Active Medications Generic Name Dose Route Start Last Admin Trade Name Freq PRN Reason Stop Dose Admin Ascorbic Acid 500 mg 06/15/25 09:00 06/15/25 09:15 Ascorbic Acid 500 Mg Tab PO 07/15/25 08:59 500 mg QAM CARI Administration Bupropion HCl 150 mg 06/14/25 14:33 06/15/25 09:15 Bupropion Sr 150 Mg Tabcr PO 07/14/25 14:32 150 mg DAILY CARI Administration Docusate Sodium 100 mg 06/15/25 09:00 06/15/25 09:19 Docusate Sodium 100 Mg Cap PO 07/15/25 08:59 100 mg BID CARI Administration Duloxetine HCl 60 mg 06/14/25 14:33 06/15/25 09:15 Duloxetine Hcl 60 Mg Cap PO 07/14/25 14:32 60 mg DAILY CARI Administration Fluticasone Propionate 1 sprays 06/14/25 14:33 06/15/25 09:16 Fluticasone Propionate Na Spr 16 Gm Btl NA 07/14/25 14:32 1 sprays DAILY CARI Administration Acetaminophen 1,000 mg in 100 mls @ 400 mls/hr 06/14/25 17:00 06/15/25 10:16 Ofirmev IV 06/17/25 16:59 Infused Q8H CARI Infusion Lidocaine 1 patch 06/14/25 14:33 06/15/25 09:17 Lidocaine 5% 1 Patch TD 07/14/25 14:32 1 patch DAILY CARI Administration Loratadine 10 mg 06/14/25 14:33 06/15/25 09:15 Loratadine 10 Mg Tab PO 07/14/25 14:32 10 mg DAILY CARI Administration Miscellaneous 1 each 06/14/25 21:00 06/14/25 20:52 Remove Lidoderm Patch N/A 07/14/25 20:59 1 each DAILY@2100 CARI Administration Morphine Sulfate 4 mg 06/14/25 14:33 06/15/25 07:39 Morphine Sulfate 4 Mg/Ml 1 Ml Carp\Vial IV 06/28/25 14:32 4 mg Q2H PRN Administration Severe Pain (Scale 7, 8, 9,10) Naloxegol 25 mg 06/14/25 10:15 06/15/25 09:15 Naloxegol Oxalate 25 Mg Tab PO 07/14/25 10:14 25 mg DAILY CARI Administration
[2025-06-15] MEDS: KETOROLAC TROMETHAMINE 15 MG/ML VIAL IV PRN (15:43)
[2025-06-15] MEDS: PIPERACILLIN/TAZOBACTAM 4.5 GM/100 ML BAG IV SCH (21:13)
[2025-06-15] MEDS: diphenhydrAMINE 50 MG/ML VIAL IV STA (22:23)
[2025-06-15] MEDS: FAMOTIDINE 20MG IV PUSH 20 MG/5 ML SYR IV STA (22:24)
[2025-06-16 06:51] LABS: Hematocrit (blood only) 31.2 % (37.0-47.0); Hemoglobin 10.3 g/dl (12.0-16.0); Mean Corpuscular Hemoglobin 28.9 pg (25.0-34.0); Mean Corpuscular Volume 87.4 fL (80.0-100.0); Platelet Count 207 K/uL (130-400); RDW Standard Deviation 41.9 fL (36.4-46.3); Red Blood Count 3.57 M/uL (4.20-5.40); White Blood Count 7.55 K/ul (4.8-10.8)
[2025-06-16 07:05] LABS: Anion Gap 7.0 (3-11); Blood Urea Nitrogen 10.0 mg/dl (6-23); Calcium 8.9 mg/dl (8.6-10.3); Carbon Dioxide 26.0 mmol/L (21-32); Chloride 106.0 mmol/L (98-107); Creatinine Clr Calc Pharmacy 110.0 ml/min; Glucose 98.0 mg/dl (70-99(Fasting)); Magnesium 2.0 mg/dl (1.7-2.4); Potassium 3.3 mmol/L (3.5-5.1); Sodium 139.0 mmol/L (136-145)
[2025-06-16] MEDS: ERTAPENEM 1000MG 1,000 MG/10 ML SYR IV SCH (08:03)
[2025-06-16] MEDS ORDERED: SODIUM PHOSPHATE 3 MMOL/1 ML INFUSION IV STA (09:08)
[2025-06-16 09:38] LABS: Iron 13.0 mcg/dl (35-150); Total Iron Binding Cap Calc 228.0 mcg/dl (250-450); Transferrin 163.0 mg/dl (200-360); Transferrin (FE) Percent Satur 6.0 % (15-50)
[2025-06-16 09:54] LABS: Ferritin 116.3 ng/ml (8-388)
--- NOTE | 2025-06-16 10:15 | Surgery Progress Note ---
<Statement entered by Anthony Medina MD - 06/16/25 15:53> I independently saw the patient and I agree with the assessment and plan of care. Date of Service June 16, 2025 Assessment & Plan (1) Cecal bascule: Plan: POD#2 from laparoscopic right colectomy with primary anastomosis WBC 7.5, Hbg 10.3. Vitals stable Patient feeling well. Pain controlled. No n/v on fulls. + flatus, no BM yet Abdomen soft, incisions c/d/i with isaiah. EDWARD drain serosang Will advance to low fiber and see how she fairs Will remove EDWARD drain soon Start d/c planning Admission and Anticipated Discharge Date Admission Date: June 14, 2025 Subjective Patient feels well. Tolerating liquid diet. + gas, no BM yet. Pain tolerable. Has been OOB. Physical Exam Physical Exam: awake/alert, no distress Respiratory: normal respiratory effort Gastrointestinal (Abdomen): Percussion/Palpation: abdomen soft; abdomen nontender incisions c/d/i with isaiah, mild ecchymosis. no infection. EDWARD drain serosang Results & Data Vital Signs (Past 12 Hours) Vital Signs Temp Pulse Resp BP Pulse Ox O2 Del Method 06/16/25 07:50 119/75 06/16/25 07:30 98.1 F 83 17 93/54 L 97 Room Air 06/15/25 23:27 97.5 F L 77 18 123/82 100 Room Air PG Care Time/CCT Total # of Minutes Spent Total Time Spent with Patient: Total time spent is greater than 50% in coordination of care (as documented) at patient's floor/unit and/or counseling patient: Coding Level of Care Code 25264 Post Operative Follow-Up Diagnoses Cecal bascule K56.2
[2025-06-16] MEDS: SODIUM PHOSPHATE 15 MMOL in SODIUM CHLORIDE 0.9% 250 ML IV ONE (10:24)
[2025-06-16] MEDS: POTASSIUM CHLORIDE PWD 20 MEQ PACK PO SCH (10:25)
--- NOTE | 2025-06-16 14:50 | Discharge Summary ---
Discharge Summary Date of Service June 16, 2025 Principal Dx & Hospital Course #1 = Principal Diagnosis (1) Nausea, vomiting, and diarrhea: Ms Ratliff is a 54-year-old female with past medical history significant for depression, anxiety, sleep apnea who is from [facility] to take care of her daughters and her kids admitted for cecal volvulus and now s/p right hemicolectomy. Patient doing well post operatively thus far. Patient with flatus and tolerating low fiber diet. On day of discharge pain was controlled. Patient ambulating independently. Follow up being coordinated with [facility] Patient denied any acute concerns and cleared for d/c with surgery. #Cecal volvulus s/p hemicolectomy Noted in op report to have multiple small bowel nodules seen throughout the small bowel intraluminally, unclear etiology discussed with surgery, clear for discharge low fiber diet for now #post operative blood loss anemia labs in am to assess for post op anemia will transfuse <7 stable upon d/c with hgb at 10.3 #Depression and anxiety Continue home medications #Sleep apnea Uses dental appliance #Obesity and prediabetes on Ozempic a1c 5.3% Notes For Next Care Provider Medication Changes From Visit Oxycodone q 12 hours for severe pain Zofran q 6 hours for nausea Docusate 100mg bid Admission HPI Per Admitting Provider 54-year-old female with past medical history significant for depression, anxiety, sleep apnea who is from [facility] to take care of her daughters and her kids presents with nausea vomiting and diarrhea. Patient had several episodes of nausea /vomiting and diarrhea at home. She is on Ozempic and she gets diarrhea but this seemed different and came to the hospital as she is worried about dehydration. CAT scan showing questionable cecal volvulus. Currently patient is asymptomatic except for some abdominal discomfort. Evaluated by surgery and recommended observation for now. Denies any chest pain or shortness of breath. No headache. No cough. No fevers. But when she was vomiting was feeling hot and cold. Patient states one bowel movement was presley colored. Micturating okay. Currently resting comfortably. Past medical history. As mentioned above. Past surgical history. Hysterectomy Social history. No smoking. No alcohol spine no drug use. Family history. Father has Alzheimer's disease. Cancer in the family Admission Exam Per Admitting Provider General- Not in distress Head- atraumatic Eyes- PERRL. ENT- oropharynx clear Neck- supple, no JVD Lungs- clear to auscultation no wheezing or crackles Heart- regular rhythm; no murmur, no gallop. Abdomen- normal bowel sounds, soft, mild discomfort in periumbilical region , no distension Extremities- no pretibial edema, no erythema seen Neuro- alert, oriented PERRL, no facial palsy; no dysarthria; moves extremities Discharge Exam Constitutional WD/WN, vitals as above Respiratory normal respiratory effort, lungs clear to auscultation Cardiovascular RRR, no murmur, no edema Gastrointestinal (Abdomen) abdominal binder in place Updated Medication List Medication Instructions Recorded Confirmed Type azelastine 137 mcg (0.1 %) nasal 1 spray intranasal BID PRN 06/14/25 06/14/25 History spray Allergic Symptoms bupropion HCl 150 mg tablet,12 hr 150 mg PO DAILY 06/14/25 06/14/25 History sustained-release (Wellbutrin SR) cyclobenzaprine 5 mg tablet 5 mg PO HS PRN Spasms 06/14/25 06/14/25 History duloxetine 60 mg capsule,delayed 60 mg PO DAILY 06/14/25 06/14/25 History release fluticasone propionate 50 1 spray intranasal DAILY 06/14/25 06/14/25 History mcg/actuation nasal spray,suspension lidocaine 5 % topical patch 1 patch topical DAILY 06/14/25 06/14/25 History loratadine 10 mg tablet 10 mg PO DAILY 06/14/25 06/14/25 History lorazepam 0.5 mg tablet (Ativan) 0.5 mg PO BID PRN Anxiety 06/14/25 06/14/25 History semaglutide 0.25 mg or 0.5 mg (2 0.25 mg subcut WK 06/14/25 06/14/25 History mg/3 mL) subcutaneous pen injector (Ozempic) docusate sodium 100 mg capsule 100 mg PO BID #60 caps 06/16/25 Rx ondansetron HCl 4 mg tablet 4 mg PO Q8H 5 days #15 tabs 06/16/25 Rx oxycodone 5 mg tablet 5 mg PO Q12H PRN pain #10 tabs 06/16/25 Rx Hospital Stay Data Consultations 06/14/25 03:59 ED Decision to Admit Stat 10/27/25 14:33 Consult General Surgery Routine Procedures Performed Operation Date: 06/14/25 12:10 Actual Procedures p Laparoscopic Right Hemicolectomy(Not Applicable) - Anthony Medina MD Diagnostic Imagining Performed 06/14/25 01:06 CT abd pelvis IV con only Stat Pending Results Patient Have Any Pending Studies at Discharge: Yes Discharge Instructions Given to Patient (Per Discharging Provider) SPECIAL CARE INSTRUCTIONS: * You have surgical isaiah in place that need to be removed within 14 days post procedure, please follow up with the surgeon in this time frame. You may keep it open to air or cover with gauze/tape daily for comfort.Where your surgical drain was removed cover with dry gauze/tape daily until well healed and no longer draining. * You may continue to wear your abdominal binder as you tolerate. may remove it to shower and for breaks from it as needed * You may shower. NO soaking in pools or baths for 2 weeks * No lifting greater than 10lbs. No strenuous exercise until cleared by surgeon. Light walking is accepted. * No driving while taking narcotic pain medication; wait at least 3 days * No drinking alcohol while taking narcotic pain medication * May use Ibuprofen/Tylenol over the counter for pain as tolerated. Do not exceed 3grams of Tylenol per 24 hours * Expect some swelling and bruising. * May continue a stool softener such as colace 100mg twice daily to help prevent constipation. do not take if having loose/frequent stools. * Diet- low fiber diet Call your doctor if: * Temperature above 101 degrees, nausea/vomiting, fever/chills * Pain not relieved by pain medicine ordered * There is increased drainage or redness from any incision * You have any unanswered questions or concerns [phone]. FOLLOW UP VISIT: If not already scheduled, please call the office for a follow-up visit. Office Total Time Total Time Spent Total Time Spent (In Minutes): 45
== END 2025-06-16 16:44 | disposition home or self-care (01) | DRG 330 ==
LOC: ED 00:43 → 3W 06:06